=== PATIENT | female | born 1935 | race Caucasian/White ===

== ENCOUNTER 2019-05-12 07:43 | Day surgery (SDC) | payer OTHER ==
[2019-05-07 15:54] VITALS: BMI 28.3
[~2019-05-12 07:43] MED LIST: LACTATED RINGERS SOLUTION 1,000 ML IV SCH; ONDANSETRON 4 MG/2 ML VIAL IVPUSH PRN; oxyCODONE HCL 5 MG TABLET PO PRN
[2019-05-12] MEDS ORDERED: POVIDONE-IODINE 5% OPHTHALMIC PREP 30 ML SOLUTION ONE (09:04)
[2019-05-12] MEDS ORDERED: TETRACAINE 0.5% OPHTH SOLN 2 ML BOTTLE ONE (09:04)
[2019-05-12] MEDS ORDERED: ERYTHROMYCIN 0.5% OPHTHALMIC OINTMENT 3.5 GM TUBE ONE (09:04)
[2019-05-12] MEDS ORDERED: BUPIVACAINE HCL/PF 0.5% (5MG/ML) 10 ML VIAL ONE (09:04)
[2019-05-12] MEDS ORDERED: LIDOCAINE 1%/EPI 1:100000 (20 ML MULTI DOSE VIAL) ONE (09:04)
[2019-05-12] MEDS ORDERED: PROPOFOL 20 ML ONE ×2 (09:34→10:33)
[2019-05-12] MEDS ORDERED: MIDAZOLAM HCL 2 MG/2 ML SINGLE DOSE VIAL ONE (09:34)
[2019-05-12] MEDS ORDERED: ceFAZolin SODIUM 1 GM VIAL ONE (09:46)
[2019-05-12] MEDS ORDERED: ePHEDrine SULFATE 50 MG/1 ML AMPULE ONE (10:01)
[2019-05-12] MEDS ORDERED: EPHEDRINE SULFATE/0.9% NACL/PF 50 MG/10 ML SYRINGE NR ONE (10:01)
[2019-05-12] MEDS ORDERED: ONDANSETRON 4 MG/2 ML VIAL ONE (10:36)
[2019-05-12 11:49] VITALS: TEMP 97.4
[2019-05-12 15:18] VITALS: BP 122/72; PULSE 62
--- NOTE | 2019-05-12 15:25 | OP ---
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 In addition, medical canthal tendon laxity. 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 In addition, medical canthal tendon laxity. PROCEDURE: 1. Medical canthal tendon plication/medial canthoplasty right. 2. Lateral tarsus strip right lower lid. 3. Transconjunctival dissection and plication of retractors right lower lid. SURGEON: Dean Montalvo M.D. ANESTHESIA: Local sedation. COMPLICATIONS: None. ESTIMATED BLOOD LOSS: 1-2 mL. OPERATIVE REPORT: Patient brought to the operating room, placed on the operating room table. Vital signs monitor placed on both eyes. A medial canthal curvilinear incision was placed over the medial canthal tendon, extending to the medial portions right lower lid and lateral canthal tendon with a marking pen. Timeout was performed. Patient was given intravenous sedation and 50 mL mixture of 2% lidocaine and 1:100,000 epinephrine Marcaine was injected subcutaneously in the right medial canthus, nasal and lateral canthus down to periosteum. hemostasis. Patient was prepped and draped in usual sterile fashion exposing both eyes. The medial canthal incision was now made with a 15-blade, curvilinear S-shaped fashion, extending from the medial canthal tendon anterior limb to the medial portion of the tarsal tendinous junction right lower lid. Tarsal tendinous junction was identified, as was the medial canthal tendon, and then a 5-0 Prolene was passed through the tendon and then through the suborbicularis plane and then ascending just behind the anterior limb of the medial canthal tendon. This was tied just to stabilize the punctum as a medial canthal tendon plication/medial canthoplasty. Antibiotic irrigation was used, and the skin was closed with a running 6-0 plain suture. Lateral canthal lateral canthus down to skin and subcutaneous tissue. This was carried down to periosteum with a [place] needle and inferior nona of lateral canthal tendon was from the with sharp dissection with a [place] needle. 4-0 silk was passed margin. The lid was overlapped at the lateral canthus, marked with a sterile marking pen, divided to an anterior and posterior level. The anterior level was excised. Posterior level was posteriorly and superiorly, and a lateral tarsal junction was created, and 5-0 Prolene was passed through the tarsal strip in mattress fashion and through the periosteum at the lateral overall rim just at the junction with the superior canthal tendon. This was checked for symmetry with the contralateral side, and each of them, the Prolene was reinforced with a single 6-0 Vicryl lasso suture, tarsus. The was everted over retractor. A transconjunctival incision was made at the inferior tarsus from the punctum to the lateral canthus, and conjunctival retractors were from the down until the was released. Tarsus was then from the orbicularis with a [place] needle. A partial thickness strip of orbicularis was dissected out at the inferior tarsal border and removed and then a small amount of was placed to create a scar, preventing orbicularis overlie. The retractors were then plicated to the anterior inferior tarsus nasally, centrally, and temporally with buried 6-0 Vicryl sutures. This completed the conjunctival plication and the orbicularis incision in the right lower lid. Lateral was performed with a buried 5-0 chromic suture at the yanez line of the upper latera lid. The skin was initially closed with a 6-0 plain suture. The Prolene was then tied, advancing the tarsal strip to the oval rim with appropriate tension, and the submuscular tissues below the skin were closed with 5-0 Prolene buried suture, and the skin was closed with the same 6-0 plain in a running fashion after antibiotic irrigation. There was meticulous hemostasis. The traction was removed. Erythromycin ointment was placed in the eye and the sutures to the right medial canthus and right lateral canthus, and the patient was taken to recovery room in stable condition. DEAN MONTALVO M.D. [id number]
== END 2019-05-12 12:30 | disposition home or self-care (01) ==
LOC: FASU 07:43
PROVIDERS: ATTEND Ophthalmology
PROC: 08SQ0ZZ Reposition Right Lower Eyelid, Open Approach (ICD-10-PCS; principal; 2019-05-12 09:58)
DX: H02.132 Senile ectropion of right lower eyelid (principal); H02.89 Other specified disorders of eyelid; H16.9 Unspecified keratitis
CPT/HCPCS: 94760